=== PATIENT | male | born 1995 | race Caucasian/White ===

== ENCOUNTER 2016-08-29 18:00 | Emergency (ER) | payer OTHER | END 2016-08-29 20:14 | disposition home or self-care (01) | LOC: ER1 18:00 | DX: L23.7 Allergic contact dermatitis due to plants, except food (principal); F17.290 Nicotine dependence, other tobacco product, uncomplicated | CPT/HCPCS: 96372; 99282; J1100; Q0177 ==

== ENCOUNTER 2020-09-16 04:04 | Emergency (ER) | payer OTHER ==
[~2020-09-16 04:04] MED LIST: KEFLEX500 MG PO; ZOFRAN ODT 4 MG4 MG PO
[2020-09-16] MEDS ORDERED: LODINE CAP 300300 MG PO (04:59)
[2020-09-16] MEDS ORDERED: NORFLEX 100 MG100 MG PO (04:59)
== END 2020-09-16 05:07 | disposition home or self-care (01) ==
LOC: ER1 04:04
DX: S20.211A Contusion of right front wall of thorax, initial encounter (principal); S70.11XA Contusion of right thigh, initial encounter; V86.59XA Driver of other special all-terrain or other off-road motor vehicle injured in nontraffic accident, initial encounter; Y92.410 Unspecified street and highway as the place of occurrence of the external cause
CPT/HCPCS: 71045; 93005; 99283

== ENCOUNTER 2020-12-09 09:09 | Emergency (ER) | payer OTHER ==
[~2020-12-09 09:09] MED LIST changes: +LODINE CAP 300300 MG PO; +NORFLEX 100 MG100 MG PO
[2020-12-09] MEDS ORDERED: DELSYM30 MG/5 ML PO (10:06)
[2020-12-09] MEDS ORDERED: MEDROL DOSEPAK 24 MG PO (10:06)
[2020-12-09] MEDS ORDERED: ZITHROMAX250 MG PO (10:06)
[2020-12-09] MEDS ORDERED: ZOFRAN4 MG PO (10:06)
== END 2020-12-09 10:22 | disposition home or self-care (01) ==
LOC: ER1 09:09
DX: U07.1 COVID-19 (principal); F17.290 Nicotine dependence, other tobacco product, uncomplicated
CPT/HCPCS: 99283

== ENCOUNTER 2021-02-03 10:33 | Inpatient (IN) | payer OTHER ==
[~2021-02-03] VITALS: Ht 177.8 cm; Wt 128.8 kg
[~2021-02-03 10:33] MED LIST changes: +DELSYM30 MG/5 ML PO; +MEDROL DOSEPAK 24 MG PO; +ZITHROMAX250 MG PO; +ZOFRAN4 MG PO
[2021-02-03 12:31] LABS: HEMOGLOBIN 7.6 gm/dl (14.0-17.5); RED BLOOD COUNT 2.48 M/UL (4.20-5.50); WHITE BLOOD COUNT 26.9 K/UL (4.5-11.0)
[2021-02-03 13:05] LABS: BUN/CREATININE RATIO 18 (0-10)
[2021-02-03] MEDS ORDERED: ACETAMINOPHEN500 MG PO (15:39)
--- NOTE | 2021-02-03 16:30 | NUR ---
DR BARCENAS NOTIFIED OF CRITICAL LABS LACTIC ACID-28.2, K+-6.1, AND WBC-30.2, NEW ORDER TO REPEAT POTASSIUM LEVEL
[2021-02-03 16:54] LABS: BUN/CREATININE RATIO 21 (0-10)
[2021-02-03 17:00] LABS: HEMOGLOBIN 9.3 gm/dl (14.0-17.5)
[2021-02-03 17:16] LABS: RED BLOOD COUNT 3.02 M/UL (4.20-5.50); WHITE BLOOD COUNT 30.8 K/UL (4.5-11.0)
[2021-02-04 02:21] LABS: RED BLOOD COUNT 2.89 M/UL (4.20-5.50)
[2021-02-04 02:27] LABS: WHITE BLOOD COUNT 17.1 K/UL (4.5-11.0)
--- NOTE | 2021-02-07 23:13 | NUR ---
Pt wanted sutures on his left forehead removed. They were already coming out on their own. I told the patient that i needed a Dr.'s order to remove them and that I didnt have an order. I asked twice if he still wanted me to remove them even though i didnt have an order and he said he wanted them removed. I removed sutures and patient tolerated procedure well. Edges of wound are well APPX and their was a little bleeding near the suture threads. PIERRE.
[2021-02-09] MEDS ORDERED: PERCOCET 5/325 T1 EA PO (08:01)
== END 2021-02-09 10:38 | disposition home or self-care (01) | DRG 800 ==
LOC: ER1 10:33 → CDU 13:30 → PROG CARE 17:05 → MED SURG 4 02-06 18:07
PROVIDERS: Emergency Medicine; ADMIT Surgery
PROC: 30233N1 Transfusion of Nonautologous Red Blood Cells into Peripheral Vein, Percutaneous Approach (ICD-10-PCS; 2021-02-03)
PROC: 07TP0ZZ Resection of Spleen, Open Approach (ICD-10-PCS; principal; 2021-02-03 13:58)
DX: S36.039A Unspecified laceration of spleen, initial encounter (principal); Z68.41 Body mass index [BMI] 40.0-44.9, adult; D73.5 Infarction of spleen; E66.01 Morbid (severe) obesity due to excess calories
CPT/HCPCS: 36415; 71045; 71250; 80053; 82550; 82553; 82803; 83605; 83690; 83874; 84132; 84484; 85025; 85027; 86850; 86900; 86901; 86920; 86927; 90732; 96374; 96375; 97116; 97116-GP-CQ; 97162; 97530; 97530-GP-CQ; 99285; J0690; J1100; J1170; J2270; J2370; J2405; J2704; J2710; J7030; J7050; J7120; P9016; P9017; Q9967; U0002

== ENCOUNTER 2021-02-16 14:29 | Emergency (ER) | payer OTHER ==
[~2021-02-16 14:29] MED LIST changes: +ACETAMINOPHEN500 MG PO; +PERCOCET 5/325 T1 EA PO
[2021-02-16] MEDS ORDERED: ENDOCET 5-3251 EACH PO (16:56)
== END 2021-02-16 15:30 | disposition home or self-care (01) ==
LOC: ER1 14:29
DX: S89.92XA Unspecified injury of left lower leg, initial encounter (principal); V89.2XXA Person injured in unspecified motor-vehicle accident, traffic, initial encounter
CPT/HCPCS: 73564; 99283

== ENCOUNTER 2021-02-20 23:43 | Emergency (ER) | payer OTHER ==
[~2021-02-20 23:43] MED LIST changes: +ENDOCET 5-3251 EACH PO
[2021-02-21 00:53] LABS: HEMOGLOBIN 10.2 gm/dl (14.0-17.5); RED BLOOD COUNT 3.56 M/UL (4.20-5.50); WHITE BLOOD COUNT 7.6 K/UL (4.5-11.0)
[2021-02-21 01:19] LABS: BUN/CREATININE RATIO 24 (0-10)
[2021-02-21] MEDS ORDERED: ZOFRAN ODT 4 MG4 MG SL (04:52)
[2021-02-21] MEDS ORDERED: CEPHALEXIN500 MG PO (04:52)
== END 2021-02-21 05:05 | disposition home or self-care (01) ==
LOC: ER1 23:43
PROVIDERS: Physician Assistant
DX: N39.0 Urinary tract infection, site not specified (principal); Z90.49 Acquired absence of other specified parts of digestive tract
CPT/HCPCS: 80053; 81001; 83690; 85025; 96374; 96375; 99284; J2270; J2405; Q9967

== ENCOUNTER 2021-06-14 22:37 | Emergency (ER) | payer OTHER ==
[~2021-06-14 22:37] MED LIST changes: +CEPHALEXIN500 MG PO; +ZOFRAN ODT 4 MG4 MG SL
[2021-06-15] MEDS ORDERED: OMNICEF 300 MG300 MG PO (00:13)
== END 2021-06-15 00:38 | disposition home or self-care (01) ==
LOC: ER1 22:37
DX: S51.811A Laceration without foreign body of right forearm, initial encounter (principal); F17.200 Nicotine dependence, unspecified, uncomplicated; W19.XXXA Unspecified fall, initial encounter; Y92.009 Unspecified place in unspecified non-institutional (private) residence as the place of occurrence of the external cause
CPT/HCPCS: 12042; 73090; 99283